=== PATIENT | female | born 1975 | race Caucasian/White ===

== ENCOUNTER 2024-06-11 09:38 | Emergency (ER) | payer BC ==
[~2024-06-11] VITALS: Ht 180.3 cm; Wt 97.5 kg
[2024-06-11 09:46] VITALS: BP_SYST 126; PULSE 72; RESP 16; TEMP 97.7; O2SAT 95
[2024-06-11 10:26] LABS: BASOPHILS # (AUTO) 0.1 K/uL (0.0-0.2); EOSINOPHILS # (AUTO) 0.1 K/uL (0.0-0.4); EOSINOPHILS % (AUTO) 1.3 % (0.0-4.0); HEMOGLOBIN 9.9 g/dL (12.0-16.0); LYMPHOCYTES # (AUTO) 1.9 K/uL (1.0-5.5); LYMPHOCYTES % (AUTO) 36.7 % (20.5-51.5); MEAN CORPUSCULAR HEMOGLOBIN 22 pg (27-31); MEAN CORPUSCULAR HGB CONC 31 % (32-36); MEAN CORPUSCULAR VOLUME 70 fL (79.0-98.0); MONOCYTES # (AUTO) 0.5 K/uL (0.0-1.0); MONOCYTES % (AUTO) 9.1 % (1.7-9.3); NEUTROPHILS # (AUTO) 2.6 K/uL (1.8-7.7); NEUTROPHILS % (AUTO) 51.9 % (40.0-70.0); PLATELET COUNT (AUTO) 334 K/uL (130-430); RED BLOOD CELL COUNT(AUTO) 4.55 MIL/uL (4.2-6.2); RED CELL DISTRIBUTION WIDTH 17.5 % (9.0-15.0); WHITE BLOOD COUNT (AUTO) 5.1 K/uL (4.8-10.8)
[2024-06-11 10:42] LABS: SERUM HCG (QUALITATIVE) NEGATIVE (NEGATIVE)
[2024-06-11 10:58] LABS: ALBUMIN 3.6 g/dL (3.4-4.8); BILIRUBIN,DIRECT 0.1 mg/dL (0.0-0.3); CALCIUM 8.7 mg/dL (8.4-11.0); CREATININE 0.74 mg/dL (0.55-1.30); POTASSIUM 3.8 mmol/L (3.5-5.1); TOTAL BILIRUBIN 0.2 mg/dL (0.0-1.0); TOTAL PROTEIN, SERUM 7.1 g/dL (6.4-8.3)
[2024-06-11 11:41] VITALS: BP_SYST 126; PULSE 72; RESP 16; TEMP 97.7; O2SAT 95
[2024-06-11 11:50] LABS: PROTHROMBIN TIME 10.4 SECS (9.5-12.5)
== END 2024-06-11 11:49 | disposition home or self-care (01) ==
LOC: SED 09:38
DX: D64.9 Anemia, unspecified (principal); R53.1 Weakness; R06.02 Shortness of breath
CPT/HCPCS: 36415; 80048; 80076; 83605; 83880; 84703; 85025; 85379; 85610; 85730; 99283